=== PATIENT | female | born 1940 | race Caucasian/White ===

== ENCOUNTER 2022-10-28 15:07 | Outpatient (CLI) | payer MEDICARE | END 2022-10-28 15:08 | disposition home or self-care (01) | LOC: CSHULT 15:07 | PROVIDERS: ATTEND Otolaryngology Plastic Surgery within the Head & Neck | DX: E04.9 Nontoxic goiter, unspecified (principal); E04.2 Nontoxic multinodular goiter | CPT/HCPCS: 76536 ==

== ENCOUNTER 2024-01-25 13:20 | Outpatient (CLI) | payer MEDICARE | END 2024-01-25 13:21 | disposition home or self-care (01) | LOC: CSHULT 13:20 | PROVIDERS: ATTEND Otolaryngology Plastic Surgery within the Head & Neck | DX: E04.2 Nontoxic multinodular goiter (principal) | CPT/HCPCS: 76536 ==